=== PATIENT | female | born 1985 | race Two or more races ===

== ENCOUNTER 2018-09-14 10:26 | Emergency (ER) | payer MEDICAID ==
[~2018-09-14] VITALS: Ht 157.5 cm; Wt 77.0 kg
[2018-09-14 11:35] VITALS: BP 116/85
== END 2018-09-14 11:37 | disposition home or self-care (01) ==
LOC: ER 10:26
DX: J06.9 Acute upper respiratory infection, unspecified (principal)
CPT/HCPCS: 99283